=== PATIENT | female | born 1970 | race African-American/Black ===

== ENCOUNTER 2025-02-28 07:23 | Day surgery (SDC) | payer BC ==
[2025-02-16 08:44] VITALS: BMI 32.9
[2025-02-28 09:21] VITALS: TEMP 97.9
[2025-02-28 09:47] VITALS: BP 127/70; PULSE 61; RESP 16
== END 2025-02-28 09:50 | disposition home or self-care (01) ==
LOC: JASU-ENDO 07:23
PROVIDERS: ATTEND Internal Medicine Gastroenterology
PROC: 0DBL8ZX Excision of Transverse Colon, Via Natural or Artificial Opening Endoscopic, Diagnostic (ICD-10-PCS; principal; 2025-02-28 09:00)
DX: Z12.11 Encounter for screening for malignant neoplasm of colon (principal); K63.5 Polyp of colon; K57.30 Diverticulosis of large intestine without perforation or abscess without bleeding; Z83.719 Family history of colon polyps, unspecified; I10 Essential (primary) hypertension
CPT/HCPCS: 81025; 88305-TC